=== PATIENT | male | born 1960 | race Caucasian/White ===

== ENCOUNTER 2017-06-04 13:27 | Day surgery (SDC) | payer BC ==
[~2017-06-04 13:27] MED LIST: RINGERS SOLUTION,LACTATED 1,000 ML IV PRN; ceFAZolin SODIUM 1 GM VIAL IV PRN
[2017-06-04] MEDS ORDERED: RINGERS SOLUTION,LACTATED 1,000 ML IV ONE ×2 (14:08→15:41)
[2017-06-04] MEDS ORDERED: BUPIVACAINE HCL 50 ML VIAL IJ ONE ×2 (15:10)
--- NOTE | 2017-06-04 15:43 | OR ---
Operative Report - Dictated Report Narrative: Date: 06/04/2017 Physician: Noe Alvarez M.D. Beauty Advisor: Martin Covarrubias PA-C Preoperative diagnosis: Right carpal and cubital tunnel syndrome Postoperative diagnosis: Right carpal and cubital tunnel syndrome Procedure: Right endoscopic carpal tunnel release and ulnar nerve decompression at the cubital tunnel Anesthesia: General Plus local Complications: None Estimated blood loss: Minimal Tourniquet time: 22 Minutes at 250 mmHg Specimens: None Retained implants: None Drains: None Indications: Mr. Meza Is a 57-year-old gentleman who has been followed in my clinic with complaints of cubital and carpal tunnel syndrome. Physical exam as well as diagnostic testing showed compression of the ulnar and median nerve compatible with cubital and carpal tunnel syndrome. Conservative measures had failed including, but not limited to, activity modification, medications, and/or splinting. The risks, benefits, and alternatives were discussed in clinic. The risks being bleeding, infection, nerve, tendon, blood vessel injury, persistent pain, wound competitions, weakness, palm pain, need for additional procedures, and persistent symptoms. Consent was obtained in the clinic. Procedure: After marking the correct extremity in the preoperative holding area, a timeout was performed in the operating room. IV antibiotics consisting of Ancef were administered prior to the procedure. A well-padded tourniquet was applied to the operative upper arm. The arm was exsanguinated and the tourniquet was inflated to 250 mmHg. 0.5% Marcaine without epinephrine was infused into the projected incision site over the medial elbow and the portal sites at the wrist. Using loupe magnification, a transverse incision was made in the proximal wrist flexion crease just ulnar to the ulnar to the palmaris longus tendon or in line with approximately the ring finger. Blunt dissection and hemostasis with bipolar cautery was utilized down to the forearm fascia. The forearm fascia was split longitudinally just ulnar to the palmaris longus exposing the entry into the carpal tunnel. A [place] was placed under the transverse carpal ligament elevating the soft tissues under the dorsal aspect of the transverse carpal ligament. This was confirmed to be under the transverse carpal ligament based on the corrugated nature of the tissue. Once we had removed soft tissues from the transverse carpal ligament, a blunt trocar and cannula was introduced under the transverse carpal ligament exiting the palm through a marilynn incision. The hand was then placed in an extension holding device and the camera was introduced into the cannula. A probe was utilized in order to ensure that all soft tissues were elevated off the dorsal aspect of the transverse carpal ligament and ensuring that all tissues were running transversely. No vascular or neurologic tissues were visualized. The push, followed by probe, followed by hook blades was utilized to transect the distal one half of the transverse carpal ligament. This allowed for ingress of fat. The camera was then placed distally looking proximally, and the proximal one half of the transverse carpal ligament was transected using the hook blade. This again allowed for ingress of fat. The probe blade was utilized in order to release any additional remaining fibers. Once it was felt that the transverse carpal ligament was completely transected, the blunt trocar was reintroduced into the trocar and removed in whole. A [place] was utilized in order to visualize the carpal tunnel ensuring that the transverse carpal ligament was completely released using a [place]. The distal forearm fascia was released ensuring that the median nerve was completely decompressed utilizing tenotomy scissors. A light compressive dressing was then placed and attention was turned to the elbow. Next, a longitudinal incision centered over the cubital tunnel was made approximately 5 centimeters in length. Blunt dissection was carried down to the subcutaneous tissues using bipolar cautery for hemostasis. Care was taken to protect the identified underlying cutaneous nerves. The ulnar nerve was identified as it passed through the medial intermuscular septum along the distal triceps. A release of the canal in this area as the ulnar nerve passed anterior to posterior was performed in order to decompress the nerve at this site. The nerve was dissected releasing the overlying soft tissues while maintaining the vascularity of the nerve down to the area of the medial epicondyles and Shi's ligament. The nerve was completely decompressed as it passed posterior to the medial condyle and was followed into the flexor carpi ulnaris. The deep fascia of the flexor carpi ulnaris muscle was released in order to decompress the nerve at this site. The first branch of the ulnar nerve was protected as well as any identified recurrent branches. The elbow was placed through range of motion and it was noted that the nerve was not unstable nor did it appear to be under tension as it passed behind the medial epicondyle. For this reason it was not felt that a transposition was not necessary. Once it was felt that we had completely released the compressive structures on the ulnar nerve, the wound was thoroughly irrigated and the tourniquet was deflated. Fluid passed freely through the carpal tunnel wounds. Hemostasis was obtained at the elbow and wrist using pressure and bipolar cautery. Once adequate hemostasis was in place, additional local anesthetic was placed in the skin edges, and the subcutaneous tissue at the elbow was closed with interrupted Vicryl. The skin and portal sites were closed with 4-0 nylon and sterile dressings consisting of Xeroform, 4 x 4, soft roll, a plaster short arm dorsal wrist splint, and a forearm Johnnie wrap was applied. All sponge, needle, blade, and instrument counts were correct prior to closing the wounds. The patient was awoken and transferred to the postanesthesia care unit in stable condition.
[2017-06-04 17:25] VITALS: BP 126/69
== END 2017-06-04 13:28 | disposition home or self-care (01) ==
LOC: AMB 13:27
PROVIDERS: ATTEND Orthopaedic Surgery
PROC: 01N54ZZ Release Median Nerve, Percutaneous Endoscopic Approach (ICD-10-PCS; principal; 2017-06-04 16:20)
PROC: 01N40ZZ Release Ulnar Nerve, Open Approach (ICD-10-PCS; 2017-06-04 16:20)
DX: G56.01 Carpal tunnel syndrome, right upper limb (principal); G56.21 Lesion of ulnar nerve, right upper limb; I10 Essential (primary) hypertension; E11.9 Type 2 diabetes mellitus without complications; I25.10 Atherosclerotic heart disease of native coronary artery without angina pectoris; E78.00 Pure hypercholesterolemia, unspecified; K21.9 Gastro-esophageal reflux disease without esophagitis; E66.01 Morbid (severe) obesity due to excess calories; Z68.35 Body mass index [BMI] 35.0-35.9, adult; Z87.891 Personal history of nicotine dependence

== ENCOUNTER 2017-06-25 08:56 | Day surgery (SDC) | payer BC ==
[~2017-06-25 08:56] MED LIST changes: +RINGER'S SOLUTION,LACTATED 1,000 ML IV PRN; -RINGERS SOLUTION,LACTATED 1,000 ML IV PRN
[2017-06-25] MEDS ORDERED: BUPIVACAINE HCL 50 ML VIAL IJ ONE ×2 (10:26)
--- NOTE | 2017-06-25 11:06 | OR ---
Operative Report - Dictated Report Narrative: Date: 06/25/2017 Physician: Noe Alvarez M.D. Liquor Store Manager: Martin Covarrubias PA-C Preoperative diagnosis: Left carpal and cubital tunnel syndrome Postoperative diagnosis: Left carpal and cubital tunnel syndrome Procedure: Left endoscopic carpal tunnel release and ulnar nerve decompression at the cubital tunnel Anesthesia: General Plus local Complications: None Estimated blood loss: Minimal Tourniquet time: 20 Minutes at 250 mmHg Specimens: None Retained implants: None Drains: None Indications: Mr. Meza Is a 57-year-old gentleman who has been followed in my clinic with complaints of cubital and carpal tunnel syndrome. Physical exam as well as diagnostic testing showed compression of the ulnar and median nerve compatible with cubital and carpal tunnel syndrome. Conservative measures had failed including, but not limited to, activity modification, medications, and/or splinting. The risks, benefits, and alternatives were discussed in clinic. The risks being bleeding, infection, nerve, tendon, blood vessel injury, persistent pain, wound competitions, weakness, palm pain, need for additional procedures, and persistent symptoms. Consent was obtained in the clinic. Procedure: After marking the correct extremity in the preoperative holding area, a timeout was performed in the operating room. IV antibiotics consisting of Ancef were administered prior to the procedure. A well-padded tourniquet was applied to the operative upper arm. The arm was exsanguinated and the tourniquet was inflated to 250 mmHg. 0.5% Marcaine without epinephrine was infused into the projected incision site over the medial elbow and the portal sites at the wrist. Using loupe magnification, a transverse incision was made in the proximal wrist flexion crease just ulnar to the ulnar to the palmaris longus tendon or in line with approximately the ring finger. Blunt dissection and hemostasis with bipolar cautery was utilized down to the forearm fascia. The forearm fascia was split longitudinally just ulnar to the palmaris longus exposing the entry into the carpal tunnel. A [place] was placed under the transverse carpal ligament elevating the soft tissues under the dorsal aspect of the transverse carpal ligament. This was confirmed to be under the transverse carpal ligament based on the corrugated nature of the tissue. Once we had removed soft tissues from the transverse carpal ligament, a blunt trocar and cannula was introduced under the transverse carpal ligament exiting the palm through a marilynn incision. The hand was then placed in an extension holding device and the camera was introduced into the cannula. A probe was utilized in order to ensure that all soft tissues were elevated off the dorsal aspect of the transverse carpal ligament and ensuring that all tissues were running transversely. No vascular or neurologic tissues were visualized. The push, followed by probe, followed by hook blades was utilized to transect the distal one half of the transverse carpal ligament. This allowed for ingress of fat. The camera was then placed distally looking proximally, and the proximal one half of the transverse carpal ligament was transected using the hook blade. This again allowed for ingress of fat. The probe blade was utilized in order to release any additional remaining fibers. Once it was felt that the transverse carpal ligament was completely transected, the blunt trocar was reintroduced into the trocar and removed in whole. A [place] was utilized in order to visualize the carpal tunnel ensuring that the transverse carpal ligament was completely released using a [place]. The distal forearm fascia was released ensuring that the median nerve was completely decompressed utilizing tenotomy scissors. A light compressive dressing was then placed and attention was turned to the elbow. Next, a longitudinal incision centered over the cubital tunnel was made approximately 6 centimeters in length. Blunt dissection was carried down to the subcutaneous tissues using bipolar cautery for hemostasis. Care was taken to protect the identified underlying cutaneous nerves. The ulnar nerve was identified as it passed through the medial intermuscular septum along the distal triceps. A release of the canal in this area as the ulnar nerve passed anterior to posterior was performed in order to decompress the nerve at this site. The nerve was dissected releasing the overlying soft tissues while maintaining the vascularity of the nerve down to the area of the medial epicondyles and Shi's ligament. The nerve was completely decompressed as it passed posterior to the medial condyle and was followed into the flexor carpi ulnaris. The deep fascia of the flexor carpi ulnaris muscle was released in order to decompress the nerve at this site. The first branch of the ulnar nerve was protected as well as any identified recurrent branches. The elbow was placed through range of motion and it was noted that the nerve was not unstable nor did it appear to be under tension as it passed behind the medial epicondyle. For this reason it was not felt that a transposition was not necessary. Once it was felt that we had completely released the compressive structures on the ulnar nerve, the wound was thoroughly irrigated and the tourniquet was deflated. Fluid passed freely through the carpal tunnel wounds. Hemostasis was obtained at the elbow and wrist using pressure and bipolar cautery. Once adequate hemostasis was in place, additional local anesthetic was placed in the skin edges, and the subcutaneous tissue at the elbow was closed with interrupted Vicryl. The skin and portal sites were closed with 4-0 nylon and sterile dressings consisting of Xeroform, 4 x 4, soft roll, a plaster short arm dorsal wrist splint, and a forearm Johnnie wrap was applied. All sponge, needle, blade, and instrument counts were correct prior to closing the wounds. The patient was awoken and transferred to the postanesthesia care unit in stable condition.
[2017-06-25] MEDS ORDERED: RINGER'S SOLUTION,LACTATED 1,000 ML IV PRN (11:59)
[2017-06-25] MEDS ORDERED: HYDROmorphone HCL 2 MG/ML VIAL IV PRN (12:00)
[2017-06-25] MEDS ORDERED: oxyCODONE HCL/ACETAMINOPHEN 1 TAB TABLET PO PRN (12:00)
[2017-06-25 13:04] VITALS: BP 131/82
== END 2017-06-25 08:57 | disposition home or self-care (01) ==
LOC: AMB 08:56
PROVIDERS: ATTEND Orthopaedic Surgery
PROC: 01N54ZZ Release Median Nerve, Percutaneous Endoscopic Approach (ICD-10-PCS; principal; 2017-06-25 11:30)
PROC: 01N40ZZ Release Ulnar Nerve, Open Approach (ICD-10-PCS; 2017-06-25 11:30)
DX: G56.02 Carpal tunnel syndrome, left upper limb (principal); G56.22 Lesion of ulnar nerve, left upper limb; I10 Essential (primary) hypertension; E11.9 Type 2 diabetes mellitus without complications; I25.10 Atherosclerotic heart disease of native coronary artery without angina pectoris; E78.00 Pure hypercholesterolemia, unspecified; K21.9 Gastro-esophageal reflux disease without esophagitis; E66.01 Morbid (severe) obesity due to excess calories; Z68.35 Body mass index [BMI] 35.0-35.9, adult; Z87.891 Personal history of nicotine dependence

== ENCOUNTER 2017-08-04 07:17 | Emergency (ER) | payer BC ==
[2017-08-04 07:29] VITALS: BP 135/91
[2017-08-04 07:46] LABS: Hematocrit 42.7 % (42.0-52.0); Hemoglobin 14.5 gm/dL (13.5-18.0); Mean Cell Volume 84.4 fl (78-100); Mean Corpuscular Hemoglobin 28.7 pg (27-31); Neutrophil # 2.9 K/mm3 (1.3-6.0); Neutrophil % 47.7 % (42-75.0); Platelet Count 197 K/mm3 (150-450); Red Blood Count 5.06 M/mm3 (4.7-6.0); Red Cell Distribution Width 13.1 % (11.5-14.0)
--- NOTE | 2017-08-04 07:51 | ERNOTE ---
Integumentary HPI - General Presenting Symptoms: insect bite Time Seen by Provider: 08/04/17 07:50 Source: patient, RN notes reviewed Exam Limitations: no limitations - Immun/Allergies/Home Medications Immunizations: IMMUNIZATION HX Immunizations Up to Date Yes History of Influenza Vaccine Yes Hx Pneumococcal Vaccination No Allergies/Adverse Reactions: Allergies Allergy/AdvReac Type Severity Reaction Status Date / Time No Known Allergies Allergy Verified 08/04/17 07:30 Home Medications: HOME MEDICATIONS Aspirin [Aspirin Enteric Coated] 81 mg PO DAILY 05/09/13 [Last Taken Unknown] Atorvastatin Calcium [Lipitor] 40 mg PO HS 05/09/13 [Last Taken Unknown] Losartan Potassium [Cozaar] 25 mg PO DAILY 05/09/13 [Last Taken 06/04/17 08:00] Metoprolol Tartrate [Lopressor] 100 mg PO BID 05/09/13 [Last Taken 06/04/17 08: 00] metFORMIN HCL [Glucophage] 1,000 mg PO BIDWM 05/09/13 [Last Taken Unknown] Blood Sugar Diagnostic, Drum [Accu-Chek Compact] 1 each MC BID 04/11/15 [Last Taken Unknown] Insulin Glargine,Hum.rec.anlog [Lantus] 18 unit SQ BID 04/11/15 [Last Taken Unknown] Nitroglycerin [Nitrostat] 0.4 mg SL [id number] PRN 04/11/15 [Last Taken Unknown] glipiZIDE [Glucotrol] 10 mg PO BID 08/30/16 [Last Taken Unknown] Liraglutide [Victoza 2-Nikita] 18 mg SQ DAILY 05/27/17 [Last Taken Unknown] Secukinumab [Cosentyx Syringe] 150 mg SQ Q28D 05/27/17 [Last Taken Unknown] Amoxicillin/Potassium Clav [Amox-Clav 875-125 mg Tablet] 1 each PO BID #20 tablet 08/04/17 [Last Taken Unknown] - History of Present Illness Narrative: Patient with 4 day history of a wound to his right anterior inferior leg that has worsened in the last day. He has diabetes, unknown if controlled or not as he does not check his blood sugar regularly. He states that the ulceration has doubled in size in the last 24 hours. 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 Location: Reports: lower extremity Quality: Reports: painful Severity: moderate Exposure: Reports: no cause identified Modifying Factors - (Worsens): Reports: scratching Associated Symptoms: Reports: change in skin texture Prior Treatment: Denies: recently seen, treated by physician, recently hospitalized, currently on antibiotics Review of Systems - Review of Systems Constitutional: Absent: recent illness, fever, chills EYE: Present: no symptoms reported ENT: Absent: ear pain, sore throat Respiratory: Absent: shortness of breath, cough Cardiology: Absent: chest pain Gastrointestinal/Abdominal: Absent: nausea, vomiting, diarrhea Genitourinary: Present: no symptoms reported Musculoskeletal: Present: no symptoms reported Skin: Present: lesions - right anterior inferior leg Neurological: Absent: anxiety, depressed Endocrine: Present: no symptoms reported Hematologic/Lymphatic: Present: no symptoms reported Psych: Present: no symptoms reported - Patient's Past Medical History Patient History - Medical: Diabetes Type 2, Other Patient History - Cardiac/Respiratory: Coronary Heart Disease, Hypertension, Hyperlipidemia, Myocardial Infarction Patient History - Cancer: No Hx of Cancer Patient History - Surgical Procedures: Colonoscopy, Other Patient History - Other: None - Family History Mother Family History - Medical: , No pertinent hx Family History - Cardiac/Respiratory: No pertinent hx Family History - Cancer: Lung Father Family History - Medical: , No pertinent hx Family History - Cardiac/Respiratory: Valvular Heart Disease Family History - Cancer: No pertinent family hx Brother Family History - Medical: , No pertinent hx Family History - Cardiac/Respiratory: No pertinent hx Family History - Cancer: Lung, Other Sister Family History - Medical: Other Family History - Cardiac/Respiratory: No pertinent hx Family History - Cancer: No pertinent family hx - Social History Living Situations: home Abuse History: No History of abuse Psych History: No pertinent hx Smoking Status: Former smoker Alcohol Use: occasionally Drug Use: none - Immunizations Immunizations Up to Date: Yes Hx Pneumococcal Vaccination: No History of Influenza Vaccine: Yes Physical Exam - Physical Exam General Appearance: Present: wd/wn, alert, no apparent distress, obese Head Exam: Present: normal inspection, no evidence of injury Eye Exam: Normal inspection: bilateral, PERRL: bilateral, EOMI: bilateral Ears, Nose, Throat: Present: normal ENT inspection Neck: Present: normal inspection, nontender Respiratory: Present: no respiratory distress, normal breath sounds, no accessory muscle use Cardiovascular/Chest: Present: regular rate, rhythm, no murmur Gastrointestinal/Abdominal: Present: normal bowel sounds, nontender, nondistended, soft Back Exam: Present: normal inspection, normal range of motion Extremity Exam: Present: other - right anterior inferior leg with an open wound with dark red coloration around it, appears dry at this time Neurological Exam: Present: alert, oriented, normal mood/affect, no motor/ sensory deficits Skin Exam: Present: normal color - except wound on right anterior inferior leg, warm/dry, other - right anterior inferior leg with an open wound with dark red coloration around it, appears dry at this time ED Progress - Results and Orders Patient's Lab Results:: I have reviewed the patient's lab results. Results and Orders: Patient with a blood glucose of 310, admits to not taking his blood sugar regularly. Went back in the room and counseled the patient to take his blood sugar regularly so he could keep know if he was doing good or not. Patient counseled that a high blood sugar contributes to wounds not healing. - Vital Signs Patient's Vital Signs:: I have reviewed the patient's vital signs. Vital Signs: Vital Signs 08/04/17 07:24 Temperature 36.3 C L Pulse Rate 92 Respiratory 16 Rate Blood Pressure 135/91 O2 Sat by Pulse 96 Oximetry - Progress/Reassessment Chief Complaint: Cellulitis Plan - Plan Plan: Discussed plans with patient and his spouse, counseled patient to try to check his blood sugars more often, and to monitor the wound, get in to see his physician in 2-3 days, sooner if his wound worsens. Departure Clinical Impression: Diabetes with ulcer of leg Ulcer of right leg Qualifiers: Non-pressure ulcer stage: limited to breakdown of skin Qualified Code(s): L97.911 - Non-pressure chronic ulcer of unspecified part of right lower leg limited to breakdown of skin - Departure Disposition: Home self-care Condition: Good Instructions: Diabetes and Foot Care, How to Prevent Pressure Injuries Additional Instructions: 1. Stop using the Neosporin/Triple antibiotic ointment on your wound. Instead use: BACITRACIN twice daily until healed. Referrals: Levar Reyes DO [Primary Care Provider] - Prescriptions: Amoxicillin/Potassium Clav [Amox-Clav 875-125 mg Tablet] 1 each PO BID #20 tablet
[2017-08-04 07:59] LABS: Albumin * 3.7 gm/dl (3.4-5.0); Anion Gap 13.7 mmol/L (6.8-13.8); BUN/Creatinine Ratio 22.3 (9.0-21.6); Bilirubin, Total 0.5 mg/dL (0.0-1.1); Ca. Corrected For Albumin 8.6 mg/dL (8.4-10.2); Calcium * 8.7 mg/dL (7.9-10.9); Carbon Dioxide 25.3 mmol/L (24-32.6); Total Protein 7.8 gm/dL (6.2-8.2)
== END 2017-08-04 08:28 | disposition home or self-care (01) ==
LOC: ER 07:17
DX: E11.622 Type 2 diabetes mellitus with other skin ulcer (principal); L97.919 Non-pressure chronic ulcer of unspecified part of right lower leg with unspecified severity; Z79.4 Long term (current) use of insulin; I10 Essential (primary) hypertension; E78.5 Hyperlipidemia, unspecified; I50.9 Heart failure, unspecified; I25.2 Old myocardial infarction; Z87.891 Personal history of nicotine dependence